=== PATIENT | female | born 1990 | race Caucasian/White ===

== ENCOUNTER 2017-11-18 18:55 | Observation (INO) ==
[2017-11-18] MEDS ORDERED: HYDROCODONE/APAP 5mg/325mg TABLET PO PRN (20:04)
[2017-11-18] MEDS ORDERED: CEFTRIAXONE 1 G in NS 100 ML IV SCH (20:15)
[2017-11-18] MEDS: NS 1,000 ML IV SCH (20:35)
[2017-11-18 21:58] VITALS: BMI 30.4
[2017-11-19 01:59] VITALS: RESP 16; O2SAT 96
[2017-11-19] MEDS: NS 1,000 ML IV SCH (03:33)
[2017-11-19 06:47] VITALS: BP 103/60; PULSE 68; TEMP 98.2
--- NOTE | 2017-11-19 08:23 | Progress Note ---
Progress Note: vss af L flank pain resolved completely during the night renal sono results pending plan dc to home this am once results are back q&a has f/u appt already
--- NOTE | 2017-11-19 08:43 | Ultrasound Report ---
EXAM: US renal LT DATE: 11/19/2017 7:00 AM ENCOUNTER: Initial INDICATION: L flank pain c/w possible kidney stone COMPARISON: None available. TECHNIQUE: Real-time francis scale ultrasound images limited to the left kidney were obtained. FINDINGS: The left kidney measures 12.5 x 6.5 x 5.2 cm. There is no left sided mass, calculus or hydronephrosis. IMPRESSION: Normal sonographic appearance of the left kidney. .
--- NOTE | 2017-11-19 09:28 | Progress Note ---
DATE 11/18/2017 This is a patient of mine at 31.1 weeks gestational age who presented through the emergency room to OB triage this evening complaining of pain in her left back. It resembled previous kidney infections of hers but she had no fever. It was getting worse quickly. It began at 6:00 p.m. When she left work and got home, she was in tears. She took a [place] that she had at home at 6 :40 p.m. The pain is only in the low left kidney area and does not radiate anywhere else. She reports good movement and no contractions. Vital signs show she is afebrile. A UA was done and it had 3+ blood, 50-200 RBC, 0-1 WBC, 1+ protein. Based on her examination with her uterus soft, nontender and pain in the left flank and the UA results, I believe that the most likely working diagnosis is kidney stone during third trimester . I talked about inpatient versus outpatient management and the patient and the father of the baby considered the options and opted for inpatient. I think this is a better choice given the patient's pain control issues. Will give her IV fluids and will cover her for possible infection with IV Rocephin. I will write for p.o. pain medicines and activity as tolerated and order a left renal sono in the morning if the stone has not passed by then. Questions were answered to the patient's satisfaction. ZARIA
== END 2017-11-19 10:17 | disposition home or self-care (01) ==
LOC: OBOBS 18:55 → MC 18:55
PROVIDERS: ADMIT Obstetrics & Gynecology; ATTEND Obstetrics & Gynecology